=== PATIENT | male | born 1975 | race Caucasian/White ===

== ENCOUNTER 2019-08-30 20:11 | Emergency (ER) | payer OTHER ==
[~2019-08-30] VITALS: Ht 182.9 cm; Wt 113.4 kg
[2019-08-30] MEDS ORDERED: PERCOCET 5-3251 EACH PO (22:31)
== END 2019-08-30 22:15 | disposition home or self-care (01) ==
LOC: ED 20:11
DX: S32.2XXA Fracture of coccyx, initial encounter for closed fracture (principal); S39.012A Strain of muscle, fascia and tendon of lower back, initial encounter; S20.212A Contusion of left front wall of thorax, initial encounter; Z88.0 Allergy status to penicillin; Z88.2 Allergy status to sulfonamides; Z88.5 Allergy status to narcotic agent; V80.010A Animal-rider injured by fall from or being thrown from horse in noncollision accident, initial encounter
CPT/HCPCS: 71046; 71101; 71260; 72125; 74177; 80053; 81001; 82150; 82550; 83690; 85025; 86850; 86900; 86901; 99284-25; G0480; J1170; J2405

== ENCOUNTER 2020-09-16 19:16 | Emergency (ER) | payer OTHER ==
[~2020-09-16] VITALS: Ht 182.9 cm; Wt 117.9 kg
[~2020-09-16 19:16] MED LIST: PERCOCET 5-3251 EACH PO
[2020-09-16] MEDS ORDERED: LIPITOR80 MG PO (19:33)
[2020-09-16] MEDS ORDERED: KEFLEX500 MG PO (21:07)
== END 2020-09-16 21:20 | disposition home or self-care (01) ==
LOC: ED 19:16
DX: S81.012A Laceration without foreign body, left knee, initial encounter (principal); S30.1XXA Contusion of abdominal wall, initial encounter; W55.22XA Struck by cow, initial encounter; E78.00 Pure hypercholesterolemia, unspecified; Z88.0 Allergy status to penicillin; Z88.2 Allergy status to sulfonamides; Z88.5 Allergy status to narcotic agent; Z79.899 Other long term (current) drug therapy
CPT/HCPCS: 12002; 73502; 90471; 90715; 99283-25

== ENCOUNTER 2021-08-04 09:41 | Emergency (ER) | payer OTHER ==
[~2021-08-04] VITALS: Ht 182.9 cm; Wt 117.9 kg
[~2021-08-04 09:41] MED LIST changes: +KEFLEX500 MG PO; +LIPITOR80 MG PO
== END 2021-08-04 11:37 | disposition short-term general hospital (02) ==
LOC: ED 09:41
DX: S32.810A Multiple fractures of pelvis with stable disruption of pelvic ring, initial encounter for closed fracture (principal); Z88.0 Allergy status to penicillin; Z88.5 Allergy status to narcotic agent; Z88.2 Allergy status to sulfonamides; Z79.899 Other long term (current) drug therapy; Z20.822 Contact with and (suspected) exposure to COVID-19; W55.12XA Struck by horse, initial encounter
CPT/HCPCS: 71045; 74177; 80053; 83690; 85025; 86850; 86900; 86901; 96375; 96376; 99285-25; C9803; J1170; J3010; J7030; Q9967; U0003

== ENCOUNTER 2022-01-06 12:05 | Emergency (ER) | payer OTHER ==
[~2022-01-06] VITALS: Ht 182.9 cm; Wt 117.9 kg
--- OUTSIDE RECORDS SUMMARY | 2022-01-06 12:14 | XMS ---
PreManage Notification: TWYLA SINGH [employer] Events No recent Security Events currently on file CRITERIA MET - [facility] - 2 Visits in 30 Days CARE PROVIDERS WALTER CARDOSO Physician Current PHONE: Unknown Eric has no Care Guidelines for this patient. E.Venkatesh VISIT COUNT (12 MO.) [address] TOTAL 3 NOTE: Visits indicate total known visits. ED/C VISIT TRACKING (12 MO.) 01/06/2022 12:07 [facility] [place] TYPE: Emergency COMPLAINT: - CATHETER CHANGE 12/30/2021 12:48 [facility] TYPE: Emergency DIAGNOSES: - Personal history of (healed) traumatic fracture - Other specified disorders of bladder - Post-op Problem - Infection following a procedure, other surgical site, initial encounter 08/04/2021 09:41 [facility] [place] TYPE: Emergency COMPLAINT: - LOWER BACK PAIN, POSS LOC DIAGNOSES: - Allergy status to narcotic agent - Other senior living (current) drug therapy - Allergy status to penicillin - Struck by horse, initial encounter - Low back pain - Allergy status to sulfonamides - Multiple fractures of pelvis with stable disruption of pelvic ring, initial encounter for closed fracture INPATIENT VISIT TRACKING (12 MO.) 11/28/2021 06:06 [facility] Barbara [facility]VAREN[place] TYPE: Surgery DIAGNOSES: - Multiple fractures of pelvis with stable disruption of pelvic ring, subsequent encounter for fracture with nonunion [email or web address]
[2022-01-06] MEDS ORDERED: CEFDINIR300 MG PO (12:29)
[2022-01-06] MEDS ORDERED: DOXYCYCLINE HY100 MG PO (12:29)
[2022-01-06] MEDS ORDERED: AMLODIPINE BESYL5 MG PO (12:30)
[2022-01-06] MEDS ORDERED: ACID CONTROLLER20 MG PO (12:30)
[2022-01-06] MEDS ORDERED: LEVOFLOXACIN500 MG PO (12:30)
[2022-01-06] MEDS ORDERED: TYLENOL325 MG PO (12:31)
== END 2022-01-06 14:15 | disposition home or self-care (01) ==
LOC: ED 12:05
DX: T83.031A Leakage of indwelling urethral catheter, initial encounter (principal); E78.00 Pure hypercholesterolemia, unspecified; Z88.0 Allergy status to penicillin; Z88.2 Allergy status to sulfonamides; Z88.8 Allergy status to other drugs, medicaments and biological substances; Z88.5 Allergy status to narcotic agent; Z79.899 Other long term (current) drug therapy
CPT/HCPCS: 51702; 99283-25

== ENCOUNTER 2023-07-16 15:13 | Emergency (ER) | payer OTHER ==
[~2023-07-16] VITALS: Ht 182.9 cm; Wt 123.0 kg
[~2023-07-16 15:13] MED LIST changes: +ACID CONTROLLER20 MG PO; +AMLODIPINE BESYL5 MG PO; +CEFDINIR300 MG PO; +DOXYCYCLINE HY100 MG PO; +LEVOFLOXACIN500 MG PO; +TYLENOL325 MG PO
[2023-07-16] MEDS ORDERED: LISINOPRIL20 MG PO (15:21)
[2023-07-16] MEDS ORDERED: CEPHALEXIN500 M1 PO (16:15)
[2023-07-16 16:30] VITALS: BP 134/84
== END 2023-07-16 16:32 | disposition home or self-care (01) ==
LOC: ED 15:13
DX: S61.511A Laceration without foreign body of right wrist, initial encounter (principal); X58.XXXA Exposure to other specified factors, initial encounter; Z23 Encounter for immunization; Z88.0 Allergy status to penicillin; Z88.2 Allergy status to sulfonamides; Z88.5 Allergy status to narcotic agent; Z88.8 Allergy status to other drugs, medicaments and biological substances; Z79.899 Other long term (current) drug therapy
CPT/HCPCS: 12002; 90471; 90715; 99282-25

== ENCOUNTER 2023-09-22 00:32 | Emergency (ER) | payer OTHER ==
[~2023-09-22] VITALS: Ht 182.9 cm; Wt 123.0 kg
[~2023-09-22 00:32] MED LIST changes: +CEPHALEXIN500 M1 PO; +LISINOPRIL20 MG PO
[2023-09-22] MEDS ORDERED: ASPIRIN81 MG PO (00:42)
[2023-09-22 00:46] LABS: BASOPHILS 0.6 % (0-2); HEMATOCRIT 41.9 % (35.0-50.0); HEMOGLOBIN 14.3 g/dL (12.0-18.0); LYMPHOCYTES 30.6 % (24-44); MCH 29.6 (27-36); MCHC 34.1 g/dl (30-36); MCV 86.8 fl (81-99); MONOCYTES 7.6 % (0-12); NEUTROPHILS 59.2 % (39-80); PLATELET COUNT 273 K/uL (140-440); RBC 4.83 M/ul (4.3-5.7); RDW 13.2 (10.5-15.0)
[2023-09-22 00:56] LABS: INR 0.97 (0.80-1.30); PROTIME 12.4 Sec (11.2-14.2)
[2023-09-22 01:12] LABS: ALBUMIN 3.7 g/dL (3.4-5.0); ALBUMIN/GLOBULIN RATIO 1.23 (1.1-2.4); ANION GAP 11.6 (7-21); BILIRUBIN, TOTAL 0.6 ng/dL (0.2-1.0); BUN/CREATININE RATIO 16.66 (6.0-28.6); CALCIUM 8.2 mg/dL (8.5-10.1); CREATININE, SERUM 1.14 mg/dL (0.70-1.30); MAGNESIUM 1.7 mg/dL (1.8-2.4); POTASSIUM 3.6 mmol/L (3.5-5.1); PROTEIN, TOTAL 6.7 g/dL (6.4-8.2)
[2023-09-22] MEDS ORDERED: CYCLOBENZAPRINE10 MG PO (02:01)
[2023-09-22 02:30] VITALS: BP 136/85
--- NOTE | 2023-09-23 15:19 | EKG ---
[facility] [address] [facility] [place] [address] Signed Normal sinus rhythm Inferior infarct , age undetermined Abnormal ECG No previous ECGs available Confirmed by IVETTE GUERRERO MD ([id number]) on 09/23/2023 3:19:02 PM Electronically Signed By: IVETTE GUERRERO 09/23/23 1519 PATIENT NAME: TWYLA SINGH Electrocardiogram DATE OF : 75 PHYSICIAN: IVETTE GUERRERO REPORT #: [id number] REPORT IS CONFIDENTIAL AND NOT TO BE RELEASED WITHOUT AUTHORIZATION
== END 2023-09-22 02:33 | disposition home or self-care (01) ==
LOC: ED 00:32
PROVIDERS: Family Medicine
DX: R07.89 Other chest pain (principal); I10 Essential (primary) hypertension; E78.00 Pure hypercholesterolemia, unspecified; Z88.0 Allergy status to penicillin; Z88.2 Allergy status to sulfonamides; Z88.8 Allergy status to other drugs, medicaments and biological substances; Z88.5 Allergy status to narcotic agent; Z79.82 Long term (current) use of aspirin; Z79.899 Other long term (current) drug therapy
CPT/HCPCS: 36415; 71045; 80053; 83735; 83880; 84484; 85025; 85379; 85610; 93005; 93010; 99285-25

== ENCOUNTER 2025-02-09 05:38 | Day surgery (SDC) | payer BC ==
[2024-12-23 15:24] VITALS: BP 122/81
[2025-02-05 10:10] VITALS: BP 122/81
[2025-02-09] VITALS (14 sets, daily range): BP systolic 128–173; BP diastolic 61–94
[~2025-02-09] VITALS: Ht 182.9 cm; Wt 118.2 kg
[~2025-02-09 05:38] MED LIST changes: +ASPIRIN81 MG PO; +CYCLOBENZAPRINE10 MG PO; +LACTATED RINGER'S 1,000 ML IV SCH
[2025-02-09] MEDS ORDERED: Ropivacaine HCl 0.5% 30 ML VIAL ONE (06:21)
[2025-02-09] MEDS ORDERED: SODIUM CHLORIDE 0.9% 40 ML IV ONE (06:21)
[2025-02-09] MEDS ORDERED: LIDOCAINE HCL 2% 5 ML SDV ONE ×3 (06:21→07:18)
[2025-02-09] MEDS ORDERED: propofoL 200 MG/20 ML VIAL ONE ×2 (06:21→07:16)
[2025-02-09] MEDS ORDERED: fentaNYL citrate 100 MCG/2 ML VIAL ONE (06:21)
[2025-02-09] MEDS ORDERED: dexmedeTOMIDine HCl 200 MCG/2 ML VIAL ONE (06:21)
[2025-02-09] MEDS ORDERED: MIDAZOLAM HCL 2 MG/2 ML VIAL ONE (06:21)
[2025-02-09] MEDS ORDERED: DEXAMETHASONE SOD PHOS 4 MG/ML VIAL ONE (06:21)
[2025-02-09] MEDS ORDERED: Ropivacaine HCl 20 MG/10 ML AMP ONE (06:21)
--- NOTE | 2025-02-09 06:55 | NUR ---
PT WITH LISTED ALLERGY TO GABAPENTIN. ALLERGY TO MEDICATION CONFIRMED WITH PT. ORDERED PRE-OP DOSE OF GABAPENTIN WAS NOT GIVEN.
[2025-02-09] MEDS ORDERED: OXYCODONE HCL 5 MG TAB PO PRN (07:00)
[2025-02-09] MEDS ORDERED: TRANEXAMIC ACID IN NACL,ISO-OS 1,000 MG/100 ML PIGGYBACK IV SCH ×2 (07:00→09:53)
[2025-02-09] MEDS ORDERED: ondansetron HCL 4 MG TAB PO SCH (07:00)
[2025-02-09] MEDS ORDERED: CEFAZOLIN SODIUM 3 GM/30 ML SYR IV SCH ×2 (07:00→15:00)
[2025-02-09] MEDS ORDERED: PANTOPRAZOLE SODIUM 40 MG TABEC PO SCH (07:00)
[2025-02-09] MEDS ORDERED: LIDOCAINE HCL 1% 5 ML SDV INJ ONE (07:00)
[2025-02-09] MEDS ORDERED: INTRA-ARTICULAR ANALGESIC INJECTION XX SCH (07:00)
[2025-02-09] MEDS ORDERED: IBLOOD GLUCOSE TEST STRIP 1 EA TEST VI PRN ×2 (07:00→09:30)
[2025-02-09] MEDS ORDERED: OXYCODONE HCL 5 MG TAB PO SCH (07:00)
[2025-02-09] MEDS ORDERED: KETOROLAC TROMETHAMINE 30 MG/ML VIAL IV PRN (07:00)
[2025-02-09] MEDS ORDERED: ROPIVACAINE IN 0.9% SOD CHL/PF 545 ML ELS.PMP.HR IRRIGATION SCH (07:00)
[2025-02-09] MEDS ORDERED: GABAPENTIN 600 MG TAB PO SCH (07:00)
[2025-02-09] MEDS ORDERED: LACTATED RINGER'S 1,000 ML IV ONE (07:54)
[2025-02-09] MEDS ORDERED: SEVOFLURANE 250 ML BTL INH ONE (08:44)
[2025-02-09] MEDS ORDERED: KETOROLAC TROMETHAMINE 30 MG/ML VIAL ONE (08:51)
[2025-02-09] MEDS ORDERED: ACETAMINOPHEN 1,000 MG/100 ML VIAL ONE (08:51)
[2025-02-09] MEDS ORDERED: ASPIRIN325 MG PO (08:53)
[2025-02-09] MEDS ORDERED: CEFUROXIME250 MG PO (08:53)
[2025-02-09] MEDS ORDERED: SENNA LAX8.6 MG PO (08:54)
[2025-02-09] MEDS ORDERED: OXYCODONE HCL5 MG PO (08:54)
[2025-02-09] MEDS ORDERED: GABAPENTIN300 MG PO (08:54)
[2025-02-09] MEDS ORDERED: fentaNYL citrate 50 MCG/ML SDV ONE (09:15)
--- NOTE | 2025-02-09 09:15 | NUR ---
02/09/25 0915 Kenya Newman PATIENT IS MOVING HIS LEGS, BILATERALLY. HE REPORTS "MY LEFT KNEE HURTS."
[2025-02-09] MEDS ORDERED: HYDROmorphone HCL 1 MG/ML SYR ONE (09:21)
[2025-02-09] MEDS ORDERED: fentaNYL citrate 50 MCG/ML SDV IV PRN (09:30)
[2025-02-09] MEDS ORDERED: HYDROmorphone HCL 1 MG/ML SYR IV PRN (09:30)
[2025-02-09] MEDS ORDERED: MIDAZOLAM HCL 2 MG/2 ML VIAL IV PRN (09:30)
[2025-02-09] MEDS ORDERED: NALOXONE HCL 0.4 MG SYR IV PRN (09:30)
[2025-02-09] MEDS ORDERED: ondansetron HCL 4 MG/2 ML VIAL IV PRN (09:30)
--- NOTE | 2025-02-09 09:41 | NUR ---
SPOKE WITH KAILYN OLIVER AND RECEIVED VERBAL ORDER TO DC POST-OP ORDER FOR GABAPENTIN D/T CONFIRMED, LISTED ALLERGY TO MEDICATION. ORDER DC'D IN EMAR.
--- NOTE | 2025-02-09 10:25 | NUR ---
0954-PT ARRIVED BACK TO DS ON RA, AAOX3, ANSWERING QUESTIONS APPROPRIATELY, AND ABLE TO MAKE HIS NEEDS KNOWN. VS TAKEN. IV SITE ASSESSED, PATENT, AND INFUSING LR PER ORDERS. REPORT RECEIVED FROM BONDACTOR MACHINE OPERATOR. SURGICAL SITE VISUALIZED. DRSG APPEARS CDI. NOTED ON-Q-PUMP IN PLACE AND SET AT 4. CRYO CUFF IN PLACE TO L KNEE. FOOT PUMPS AND HEEL PROTECTORS PRESENT TO BLE'S. KNEE HIGH LACEY HOSE ALSO IN PLACE TO BLE'S. PT WITH REPORTS OF PAIN 9/10 IN L KNEE AND MIDWAY DOWN LLE. PTS SPINAL ONLY AFFECTED HIM UNILATERALLY WITH RLE NUMBNESS. LLE UNAFFECTED BY SPINAL. SPINAL LEVEL AT L5. PT DENIES NAUSEA WHEN ASKED. AT BEDSIDE. ALL QUESTIONS ANSWERED. BED IN LOW POSITION, WHEELS LOCKED, BILAT RAILS IN PLACE, AND CALL LIGHT WITHIN PT REACH. PT PROVIDED WITH ICE WATER, YULIANA CRACKERS, AND JELLO. 1006-PT HAS EATEN JELLO, CRACKERS, AND IS SIPPING ON WATER. PT CONT TO DENY NAUSEA WHEN ASKED. PT GIVEN PO PAIN MEDS PER EMAR FOR CONT C/O PAIN 9/10 IN L KNEE AREA. 1019-TXA STARTED PER ORDERS. 1025-ICE WATER REFILLED AND CRANBERRY JUICE PROVIDED AT PTS REQUEST.
[2025-02-09 11:16] LABS: BASOPHILS 0.2 % (0-2); EOSINOPHILS 0.3 % (0-6); HEMATOCRIT 38.6 % (35.0-50.0); LYMPHOCYTES 10.8 % (24-44); MCH 29.8 (27-36); MCHC 33.7 g/dl (30-36); MCV 88.3 fl (81-99); MONOCYTES 2.3 % (0-12); NEUTROPHILS 86.4 % (39-80); PLATELET COUNT 253 K/uL (140-440); RBC 4.37 M/ul (4.3-5.7); RDW 12.7 (10.5-15.0)
[2025-02-09 11:39] LABS: ALBUMIN 3.3 g/dL (3.4-5.0); ALBUMIN/GLOBULIN RATIO 1.18 (1.1-2.4); ANION GAP 11.3 (7-21); BILIRUBIN, TOTAL 0.5 mg/dL (0.2-1.0); CALCIUM 8.3 mg/dL (8.5-10.1); CHOLESTEROL/HDL RATIO 3.6; MAGNESIUM 1.6 mg/dL (1.8-2.4); PHOSPHORUS, INORGANIC 2.4 mg/dL (2.5-4.9); POTASSIUM 4.3 mmol/L (3.5-5.1); PROTEIN, TOTAL 6.1 g/dL (6.4-8.2); TSH, 3RD GENERATION 0.691 uIU/mL (0.358-3.740)
[2025-02-09] MEDS ORDERED: lisinopriL 20 MG TAB PO ONE (12:30)
--- NOTE | 2025-02-09 12:30 | NUR ---
1027-INTO PTS ROOM WITH REQUESTED WARM BLANKET. NOTED PT WITH RAPID EYE MOVEMENTS SIDE TO SIDE. THIS RN STATED TO PT "TYGH, ARE YOU FEELING OKAY?". PT ATTEMPTING TO ANSWER, BUT APPEARED TO BE EXPERIENCING SOME APHASIA. THIS RN ASKED PT "DO YOU KNOW WHERE YOU ARE". PT ANSWERED [facility] WITH DELAY AND SLUR TO SPEECH NOTED. THIS RN CALLED FOR ADDITIONAL RN ASSISTANCE FROM DRIVER EDUCATION INSTRUCTOR. VS TAKEN. PT CONT TO ATTEMPT SPEECH WITH APHASIA NOTED. WHEN PT IS ABLE TO GET WORDS OUT, WORDS ARE SLURRED. SPOKE WITH DRIVER EDUCATION INSTRUCTOR REGARDING NEED TO CALL RAPID RESPONSE OR STROKE CODE. PTS REMAINS AT BEDSIDE. 1030-CHARGE LN WITH CALL TO DR. FAM. THIS RN REMAINED WITH PT. NOTED PERRLA. NO FACIAL DROOP/SMILE EQUAL. PT ABLE TO MOVE BOTH ARMS W/O ANY WEAKNESS OR DEFICITS NOTED. 1035-CHARGE LN CALLED STROKE CODE. PT BECOMING TEARFUL AND EMOTIONAL. REASSURANCE PROVIDED. PT COACHED THROUGH PURSED LIP BREATHING. THIS WAS EFFECTIVE IN CALMING PT DOWN SOME AND SLOWING PTS BREATHING. 1038-STAINED GLASS WINDOW DESIGNER INTO ROOM. DIAGNOSTIC TECHNICIAN EQUAL. PT IS ABLE TO FOLLOW COMMAND AND DEMONSTRATED ABILITY TO TOUCH NOSE AND THEN FINGER TIP OF STAINED GLASS WINDOW DESIGNER. PT STILL EXPERIENCING DIFFICULTY WITH APHASIA AND SLURRED SPEECH. PT ABLE TO LIFT BOTH RLE OFF BED INSTRUCTED AND NO DRIFT NOTED. PT ABLE TO LIFT LLE OFF BED AND NO DRIFT NOTED. 1040-HOSPITALIST INTO PTS ROOM FOR EVAL. LABS AND IMAGING ORDERED. RN EQUALIZER OPERATOR CLEM ENTERING ORDERS. 1045-KAILYN LYNCH INTO PTS ROOM AND SPEAKING WITH PT AND PTS . 1050-EKG COMPLETED. 1053-LAB ARRIVED FOR BLOOD DRAW, HOWEVER PT NEEDING TO GO TO CT FOR IMAGING. LAB FOLLOWING TO CT. PT TAKEN TO CT VIA STRETCHER. 1055-PT TRANSFERRED TO CT TABLE. 1105-CT COMPLETE. PT TRANSFERRED BACK TO STRETCHER. LAB DRAWING BLOOD. 1110-CXR COMPLETED. 1115-PT TRANSFERRED BACK TO DS ROOM 7 VIA STRETCHER. HOSPITALIST AT PTS BEDSIDE WELL PTS . 1120-VS TAKEN. CALL LIGHT WITHIN PT REACH. CRYO CUFF AND SCD'S TURNED ON. BED IN LOW POSITION, WHEELS LOCKED. 1130-DR. FAM AND KAILYN AT PTS BEDSIDE. ROUTINE REASSESSMENT COMPLETED. VS TAKEN AND FREQ INCREASED TO Q30 MIN CHECKS. BP INCREASED SOME, REST OF VITALS REMAIN WITHIN PT BASELINE. SPINAL AT S1. PT DENIES NAUSEA. PAIN RATED AT 5/10 IN L KNEE BY PT WHEN ASKED. PT REPORTS THIS TO BE TOLERABLE. LLE PEDAL PULSE REMAINS STRONG. PT STILL TEARFUL AND REASSURANCE PROVIDED. CONT TO REMAIN AT PTS BEDSIDE. PT ABLE TO SAY HIS NAME AND DATE OF BUT WITH DIFFICULTY GETTING WORDS OUT AND SLURRING OF SOME WORDS NOTED STILL. PT REPORTS FEELING COLD AND WARM BLANKETS PROVIDED. IV SITE ASSESSED. DRSG REMAINS CDI TO L KNEE. ON-Q PUMP REMAINS AT 4. 1135-VERBAL ORDER RECEIVED FROM KAILYN OLIVER TO CHANGE PT TO NPO AND SEE IF ST AVAILABLE FOR EVAL. ALL CUPS OF LIQUIDS EMPTIED IN PTS ROOM. 1200-ST CALLED AND THIS RN WAS INFORMED NO ST AVAILABLE ON MONDAYS. 1210-MELODY NOTIFIED OF THIS VIA PHONE AND RECEIVED INSTRUCTION TO COMPLETE SMALL SIP SWALLOW TEST/EVAL OF WATER FROM CUP WITH STRAW AT BEDSIDE WITH PT AWAKE AND SITTING ALL THE WAY UP. IF NO SIGNS OF CHOKING OR DIFFICULTY, MAY GIVE 20 MG LISINOPRIL FOR CONT ELEVATED BP'S. ROUTINE REASSESSMENT ALSO COMPLETED. PT REPORTS PAIN REMAINS TOLERABLE AT 5/10 IN L KNEE. DRSG REMAINS CDI. BP ELEVATED, REST OF VS WITHIN PTS BASELINE. PT DENIES NAUSEA WHEN ASKED. ON-Q-PUMP REMAINS AT 4. REMAINS AT PTS BEDSIDE. 1220-PT PROVIDED CUPS WITH STRAW AND APPROX 60ML OF WATER IN CUP. HOB ELEVATED TO 90 DEGREES APPROX. PT INSTRUCTED TO TAKE SMALL SIP OF WATER THROUGH STRAW AND WAS ABLE TO FOLLOW COMMAND. PT DEMONSTRATED THIS AND NO COUGHING OR DIFFICULTY WITH SWALLOW WAS NOTED. PT W/O WATER NOTED FROM CORNERS OF MOUTH AND NO EYE WATERING OBSERVED EITHER. 1230-ENTERED VERBAL ORDER FROM MELODY TO GIVE 20 MG OF LISINOPRIL ONCE FOR ELEVATED BP. 1105
--- NOTE | 2025-02-09 13:10 | NUR ---
1240-INTO PTS ROOM AND LISINOPRIL GIVEN WITH SMALL SIP OF WATER. PT SWALLOWED W/O EVIDENCE OF SWALLOWING DIFFICULTY OBSERVED. PER MELODY, PT TO REMAIN NPO AND MAY LATER BE CHANGED TO ADVANCE TOELRATED IF PTS CONDITION CONT TO IMPROVE. SPINAL NOTED TO BE WORN OFF NOW. PERRLA. ORTHOPEDICALLY IMPAIRED TEACHER REMAIN EQUAL. PT DEMONSTRATES ABILITY TO FOLLOW COMMAND AND ANSWERED QUESTIONS APPROPRAITELY. SLURRED SPEECH APPEARS TO BE RESOLVED. NO FACIAL DROOP OBSERVED. SMILE APPEARS SYMETRICAL. 1242-IMAGING INFORMED DS THAT ULTRASOUND UNAVAILABLE FOR ECHO UNTIL POSSIBLY SUNDAY. 1245-PT ASKED IF HE FEELS HE MAYBE ABLE TO VOID AND HE THINKS HE CAN. URINAL PROVIDED. CALL LIGHT WITHIN REACH. HOB ELEVATED AT APPROX 60 DEGREES. 1250-PT ABLE TO VOID APPROX 700 ML OF CLR, YELLOW URINE. 1251-DR. BLOOM NOTIFIED OF ULTRASOUND BEING UNAVAILABLE FOR ECHO UNTIL POSSIBLY SUNDAY VIA PHONE. 1255-PT REPORTS LLE UNCOMFORTABLE. REPOSITIONED LLE AND HEEL PROTECTOR. CRYO-CUFF REPOSITIONED TO BACK OF L KNEE. PT REPORTS THIS TO MAKE PAIN MUCH BETTER. 1300-IP COUNSEL AT BEDSIDE AND GIVING PAIN RELIEF THROUGH ON-Q-PUMP. ROUTINE REASSESSMENT COMPLETED. DRSG REMAINS CDI. VS TAKEN. BP IMPROVED. REST OF VS REMAIN WITHIN PTS BASELINE. PT CONT TO DENY NAUSEA WHEN ASKED. PT REPORTS PAIN IMPROVED TO 4/10. PT REPORTS THIS TO BE A TOLERABLE LEVEL OF PAIN FOR HIM. CMS REMAINS INTACT. AT BEDSIDE. CALL LIGHT WITHIN PT REACH. BED IN LOW POSITION. WHEELS LOCKED. BILAT RAILS IN PLACE. 1305-DR. FAM IN TO PTS ROOM AND SPEAKING WITH PT. 1310-PT WITH HOB DECREASED TO APPROX 10-15 DEGREES AT PT REQUEST. REMAINS AT PT BEDSIDE. CALL LIGHT WITHIN PT REACH. PT RESTING QUIETLY WITH EYES CLOSED. SATS REMAIN STABLE ON RA AT 93% OR GREATER. ALL QUESTIONS ANSWERED.
--- NOTE | 2025-02-09 13:45 | NUR ---
1345-PT TRANSFERRED TO MS ROOM 116 VIA STRETCHER. ACCOMPANIED THIS RN AND PT TO ROOM. ALL PERSONAL BELONGINGS TAKEN WITH PT TO ROOM 116. PT TRANSFERRED FROM STRETCHER TO BED WITH 2 RN ASSIST. CALL LIGHT PROVIDED TO PT. VS TAKEN. SCD'S HOOKED UP. HEEP PROTECTORS IN PLACE. BED INLOW POSITION. WHEELS LOCKED, BIALT RAILS IN PLACE. REPORT GIVEN TO GUADALUPE PULLIAM IN MS. SURGICAL SITE VISUALIZED AND REMAINS CDI. CRYO CUFF IN PLACE TO L KNEE. ALL QUESTIONS ANSWERED.
--- NOTE | 2025-02-09 14:36 | NUR ---
PATIENT ASSESSMENT IS COMPLETE. PATIENT RATES LEFT KNEE PAIN 3/10 AND PLAN TO GIVE SCHEDULED TYLENOL. LEFT KNEE DRESSING IS CDI, FOOT SCD'S ARE ON. PATIENT GIVEN ICE WATER AND CRANBERRY JUICE.
--- NOTE | 2025-02-09 14:59 | NUR ---
PT LAYING IN BED, PT HAS PAIN 4-10, PT CHECKED IN BY GUADALUPE NAYLOR. PT HAS NO CURRENT NEEDS AT THIS TIME. PT IS IN ROOM AT BEDSIDE, PT CALL LIGHT IN REACH.
[2025-02-09] MEDS ORDERED: ACETAMINOPHEN 500 MG TAB PO SCH (15:00)
[2025-02-09] MEDS ORDERED: GABAPENTIN 300 MG CAP PO SCH (15:00)
--- NOTE | 2025-02-09 15:17 | NUR ---
ALERT AND ORIENTED IN BED. IN ROOM, AT BEDSIDE. PATIENT LIVES WITH IN HOUSE. DRIVES AT BASELINE. USES A CPAP AT NIGHT. STATES HE HAS A WALKER WELL FOR SURGICAL RECOVERY. STATES HE PLANS TO DC TO HOME WITH WHEN MEDICALLY CLEARED. DENIES ANY FINANCIAL DIFFICULTIES. NO CM NEEDS AT THIS TIME.
--- NOTE | 2025-02-09 16:00 | NUR ---
PT WALKED WITH PT PT USED FWW WALKER AND WALKED MED/SURG HALLS. PT REPORTS HE FEELS GOOD AND HAS NO PAIN AT THIS TIME PT RETURNED TO BED. CALL LIGHT IN REACH.
--- NOTE | 2025-02-09 17:00 | NUR ---
PT REQUESTED WATER, PT CRYOCUFF REFILLED, PT HAS NO COCNERNS AT THIS TIME. CRYO CUFF IN PLACE WITH HEELS ELEVATED AND FOOT PUMPS IN PLACE. PT IS ALSO ON CPOX AT THIS TIME CALL LIGHT IN REACH.
--- NOTE | 2025-02-09 17:30 | NUR ---
MICHELLE GARRIDO CALLED FROM [facility] OFFICE TO CHECK OF PT. SHE WAS TOLD THAT THE PT SPEECH HAS RESOLVED TO NORMAL, AND THAT PT HAS NO DEFICITS AT THIS TIME. PT WALKED HALLWAYS WITH PT AND HAS HAD NO PAIN OR NAUSEA SINCE ADMIT. SHE HAD NO FURTHER QUESTIONS.
--- NOTE | 2025-02-09 18:15 | NUR ---
PT LAYING IN BED, PT ATE DINNER BROUGHT BY , PT TOLERATED WELL AND HAS NO CONCERNS AT THIS TIME.
--- NOTE | 2025-02-09 18:41 | NUR ---
PT SITTING IN BED WITH CRYO CUFF IN PLACE PT HAS NO PAIN AT THIS TIME CALL LIGHT IN REACH.
--- NOTE | 2025-02-09 18:54 | NUR ---
PT LAYING IN BED WITH NO PAIN AT THIS TIME, PT ALERT AND ORIENTED, PT HAS NO NEURO DEFICITS AT THIS TIME. PT FAMILY IN ROOM AND CALL LIGHT IN REACH.
--- NOTE | 2025-02-09 19:10 | NUR ---
REPORT RECEIVED FROM FRACISCO BUTCHER. pt RESTING IN THE BED WITH SCD'S ON. CRYO CUFF ON. CALL LIGHT WITHIN REACH. BOARD UPDATED. DRESSING CDI. pt DENIES ANY OTHER NEEDS AT THIS TIME. CALL LIGHT WITHIN REACH.
[2025-02-09] MEDS ORDERED: SENNOSIDES 1 TAB PO SCH (21:00)
[2025-02-09] MEDS ORDERED: cefuroxime axetiL 250 MG TAB PO SCH (21:00)
[2025-02-09] MEDS ORDERED: ASPIRIN 325 MG TAB PO SCH (21:00)
--- NOTE | 2025-02-09 21:20 | NUR ---
ASSESSMENT AND VITAL SIGNS DONE. pt UP THE BR. SBA WITH FWW. pt BACK TO BED. pt SCD'S BACK ON FEET. CPOX ON. HOME CPAP SET UP. SCHEDULED MEDS ADMINISTERED. CRYO CUFF ON. pt DENIES ANY PAIN AT THIS TIME. pt DENIES ANY NEEDS AT THIS TIME. CALL LIGHT WITHIN REACH.
--- NOTE | 2025-02-09 22:31 | NUR ---
pt CALLED TO REQUEST HIS SLEEPING MEDS. PRN MEDS ADMINISTERED. WATER REFRESHED. pt DENIES ANY OTHER NEEDS AT THIS TIME. CALL LIGHT WITHIN REACH.
--- NOTE | 2025-02-09 22:48 | EKG ---
[facility] [address] [facility] [place] [address] Signed Normal sinus rhythm Normal ECG When compared with ECG of 22-SEP-2023 00:39, Criteria for Inferior infarct are no longer present Confirmed by Jeremy Bloom MD () on 02/09/2025 10:48:50 PM Electronically Signed By: JEREMY BLOOM MD 02/09/25 2248 PATIENT NAME: TWYLA SINGH LOGAN Electrocardiogram DATE OF : 75 PHYSICIAN: JEREMY BLOOM MD REPORT #: [id number] REPORT IS CONFIDENTIAL AND NOT TO BE RELEASED WITHOUT AUTHORIZATION
[2025-02-09] MEDS ORDERED: MAGNESIUM SULFATE 2 GM/50 ML BAG IV ONE (23:15)
[2025-02-10] VITALS (8 sets, daily range): BP systolic 115–1425; BP diastolic 59–78
--- NOTE | 2025-02-10 00:37 | NUR ---
pt RESTING IN THE BED WITH EYES CLOSED. RR EVEN AND UNLABORED. CPAP ON. CALL LIGHT WITHIN REACH.
--- NOTE | 2025-02-10 02:05 | NUR ---
ASSESSMENT AND VITAL SIGNS DONE. pt RESTING IN THE BED. WATER REFRESHED. pt DENIES ANY OTHER NEEDS AT THIS TIME. CALL LIGHT WITHIN REACH.
--- NOTE | 2025-02-10 04:30 | NUR ---
pt RESTING IN THE BED WITH EYES CLOSED. RR EVEN AND UNLABORED. CALL LIGHT WITHIN REACH.
[2025-02-10 05:52] LABS: BASOPHILS 0.3 % (0-2); EOSINOPHILS 0.3 % (0-6); HEMATOCRIT 36.5 % (35.0-50.0); HEMOGLOBIN 12.4 g/dL (12.0-18.0); LYMPHOCYTES 6.2 % (24-44); MCH 29.8 (27-36); MCHC 34.1 g/dl (30-36); MCV 87.4 fl (81-99); MONOCYTES 7.1 % (0-12); NEUTROPHILS 86.1 % (39-80); PLATELET COUNT 298 K/uL (140-440); RBC 4.18 M/ul (4.3-5.7); RDW 12.9 (10.5-15.0)
[2025-02-10 06:05] LABS: ALBUMIN 3.1 g/dL (3.4-5.0); ALBUMIN/GLOBULIN RATIO 1.11 (1.1-2.4); ANION GAP 12.1 (7-21); BILIRUBIN, TOTAL 0.6 mg/dL (0.2-1.0); BUN/CREATININE RATIO 17.5 (6.0-28.6); CALCIUM 8.3 mg/dL (8.5-10.1); CREATININE, SERUM 0.8 mg/dL (0.70-1.30); POTASSIUM 4.1 mmol/L (3.5-5.1); PROTEIN, TOTAL 5.9 g/dL (6.4-8.2)
[2025-02-10 06:11] LABS: MAGNESIUM 1.9 mg/dL (1.8-2.4)
--- NOTE | 2025-02-10 06:45 | NUR ---
VITAL SIGNS DONE. MRI ASSESSMENT SHEET DONE. ICE IN CRYO CUFF REPLACED. SCD FOOT PUMPS ON. pt DENIES ANY OTHER NEEDS AT THIS TIME. ON Q PUMP ON. CALL LIGHT WITHIN REACH.
[2025-02-10] MEDS ORDERED: cefuroxime axetiL 250 MG TAB PO SCH (09:00)
--- NOTE | 2025-02-10 09:00 | NUR ---
PT SITTING UP IN CHAIR, PT HAS NO CURRENT CONCERNS AT THIS TIME, PT DID WANT TO HAVE OXYCODONE ONCE HE RETURNS FROM MRI. PT AGREEABLE TO WAIT UNTIL AFTER MRI TO TRY OXY DUE TO EPISODE IN PACU AFTER OCY ADMIN. PT WILL BE MONITORED CLOSELY POST MRI.
--- NOTE | 2025-02-10 10:00 | NUR ---
IMAGING CAME TO GET PT FOR MRI, CRISTEL OFFICE WAS CALLED TO MAKE SURE THERE WERE NO METAL COMPONENTS IN THE ONQ PUMP. FAM OFFICE CONFIRMED. PT LEFT VIA WHEEL CHAIR FOR MRI.
--- NOTE | 2025-02-10 11:12 | NUR ---
UR CLINICAL REVIEW: [facility] REVIEW MEETS EXTENDED STAY RECOVERY FOR TKA WITH NEED FOR OBS TO R/O TIA VS CVA KHRIS LOPEZ PPO EXTENDED STAY 02/11/24 @ 1105 ORDER MATCHES REG NO AUTH REQUIRED PER GUIDELINES DISCHARGE TO HOME PENDING MRI TODAY
--- NOTE | 2025-02-10 11:28 | NUR ---
PT RETURNED FROM MRI, PT RETURNED TO BED, TELE IN PLACE, VFP IN PLACE, HEELS ELEVATED, CRYO CUFF IN PLACE. OXY 5MG GIVEN FOR PAIN (SEE EMAR). CALL LIGHT IN REACH.
--- NOTE | 2025-02-10 11:48 | NUR ---
PT RECIEVED PRN OXY 5MG (SEE EMAR). PT TOLERATED OXY WELL WITH NO SIDE EFFECTS. PT HAS NO CURRENT CONCERNS AT THIS TIME CALL LIGHT IN REACH.
--- NOTE | 2025-02-10 13:27 | NUR ---
SPOKE WITH RENATE MENDEZ REGARDING PT MRI AND DISCHARGE. RENATE GAVE VERBAL TO DC HOME WITH .
--- NOTE | 2025-02-10 13:36 | NUR ---
PT LAYING IN BED, CRYO CUFF IN PLACE, PT GIVEN DISCHARGE INSTRUCTIONS, AND HAS NO FURTHER QUESTIONS AT THIS TIME. PT HAS CALL LIGHT IN REACH.
--- NOTE | 2025-02-10 13:50 | NUR ---
Spoke with pts as pt is in the bathroom. She denies any needs. Pt plans on dc shortly. They will go home, pt has a walker and his Breg cooler.
--- NOTE | 2025-02-11 10:05 | OR ---
[facility] [address] [place], [place] [address] Signed DATE OF OPERATION: 02/09/2025 SURGEON: Lucy Brady MD PREOPERATIVE DIAGNOSIS: Severe degenerative joint disease, left knee. POSTOPERATIVE DIAGNOSIS: Severe degenerative joint disease, left knee. PROCEDURE PERFORMED: Left total knee arthroplasty with Bhupendra. APPLIANCE TECHNICIAN: Shantell Royal PA-C. Shantell was present and critical for all portions of procedure. ANESTHESIA: Spinal. BLOOD LOSS: 175 mL. IMPLANTS: Karlos Triathlon size 6, 10 mm polyethylene and 38 mm patella. 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 He has had multiple injuries to his knee over the years and wished to proceed with knee replacement after failure of nonoperative treatment. Risks, benefits, and alternatives were discussed and he understood and wished to proceed. DESCRIPTION OF PROCEDURE: Once consent was obtained, he was taken to the operating room. After adequate anesthesia, he was placed on the operating room table with the left hip bump. The leg was prepped and draped in a standard sterile fashion. The knee was approached through standard anterior midline incision, carried through the skin and subcutaneous tissue. Skin flaps were developed medially and laterally. A midvastus arthrotomy was performed and the infrapatellar fat pad was excised. The MCL was elevated as a sleeve around the posteromedial corner. The anterior horns of the menisci were transected. The ACL was Electronically Signed By: LUCY BRADY MD 02/11/25 1003 PATIENT NAME: TWYLA SINGH OPERATIVE REPORT DATE OF : 75 REPORT #: [id number] PHYSICIAN: LUCY BRADY MD PCP: WALTER CARDOSO PAC REPORT IS CONFIDENTIAL AND NOT TO BE RELEASED WITHOUT AUTHORIZATION [facility] [address] [place], [place] [address] Signed absent. The PCL was found to be intact. The computer arrays for the Bhupendra system was placed in the distal femur and proximal tibia. Leg was registered with the computer followed by the fine anatomic points of the knee. The varus and valgus testing was undertaken and slight adjustments were made to the position of the prosthesis. The robot was then brought in. Four straight cuts and two ankle cuts were made with care taken to protect the patellar tendon and MCL. All bony pieces were removed along with any remaining osteophytes. The posterior osteophytes were removed off the femur. No release was performed. The trials were positioned and the knee was taken from 0 to 130 degrees with good stability and good patellar tracking. The patella was cut sized and drilled for a 38 mm patella. The distal femoral drill holes were completed. The proximal tibia was finished using the keel punch followed by the drill holes. The prosthesis was obtained. The tibia was impacted into position until it was seated flush. The polyethylene was snapped into position and the femur was impacted. Once the femur was fully impacted, the knee was extended and loaded. The patella was then clamped. Patella was fully seated. The patellar tracking was again checked and found to be good. The knee was irrigated using one bottle of Surgiphor followed by normal saline. Periarticular soft tissues were injected with 100 mL of ropivacaine and Toradol mixture. The On-Q pain pump was percutaneously placed into the adductor canal from the suprapatellar pouch. The arthrotomy was then closed using a combination of #2 FiberWire and #2 Stratafix. The subcutaneous tissue was closed with 0 Stratafix and the skin with 3-0. The was sealed with LiquiBand and Steri-Strips and dressed with Acticoat-7 dressing, ABD, and Jorge wrap. He tolerated the procedure well. All sponge, needle, and instrument counts were correct. Lucy Brady MD BA/MODL /[id number] Copies: ~ Electronically Signed By: LUCY BRADY MD 02/11/25 1005 PATIENT NAME: TWYLA SINGH OPERATIVE REPORT DATE OF : 75 REPORT #: [id number] PHYSICIAN: LUCY BRADY MD PCP: WALTER CARDOSO PAC REPORT IS CONFIDENTIAL AND NOT TO BE RELEASED WITHOUT AUTHORIZATION
== END 2025-02-10 13:45 | disposition home or self-care (01) ==
LOC: DS 05:38 → MS 13:45 → DS 02-10 13:45
PROVIDERS: Family Medicine; ATTEND Specialist
PROC: 0SRD0JA Replacement of Left Knee Joint with Synthetic Substitute, Uncemented, Open Approach (ICD-10-PCS; principal; 2025-02-09 07:00)
DX: M17.12 Unilateral primary osteoarthritis, left knee (principal); R47.01 Aphasia; I10 Essential (primary) hypertension; G47.33 Obstructive sleep apnea (adult) (pediatric); Z88.0 Allergy status to penicillin; Z88.2 Allergy status to sulfonamides; Z88.5 Allergy status to narcotic agent; Z88.8 Allergy status to other drugs, medicaments and biological substances; Z79.82 Long term (current) use of aspirin; Z79.899 Other long term (current) drug therapy
CPT/HCPCS: 01400; 36415; 64447; 64450; 64454; 70450; 70496; 70498; 70551; 71045; 73560; 76942; 80053; 80061; 83036; 83735; 84100; 84443; 84484; 85025; 85060; 93005; 93010; 97110; 97161; 97165; 97530; A9270; C1713; C1776; J0131; J0690; J1100; J1171; J1885; J2003; J2250; J2704; J2795; J3010; J3475; J7121; J7999; Q9967

== ENCOUNTER 2025-11-02 05:44 | Day surgery (SDC) | payer BC ==
[~2025-11-02] VITALS: Ht 182.9 cm; Wt 118.0 kg
[~2025-11-02 05:44] MED LIST changes: +ASPIRIN325 MG PO; +CEFUROXIME250 MG PO; +GABAPENTIN300 MG PO; +OXYCODONE HCL5 MG PO; +SENNA LAX8.6 MG PO; +VAZALORE81 MG PO
[2025-11-02 06:05] VITALS: BP 138/80
[2025-11-02] MEDS ORDERED: LIDOCAINE HCL 2% 5 ML SDV ONE ×2 (06:08→06:19)
[2025-11-02] MEDS ORDERED: Ropivacaine HCl 0.5% 30 ML VIAL ONE ×2 (06:11→12:35)
[2025-11-02] MEDS ORDERED: MUPIROCIN22 GM TOP (06:39)
[2025-11-02] MEDS ORDERED: VANCOMYCIN HCL 1 GM in DEXTROSE 5% 250 ML IV SCH (07:00)
[2025-11-02] MEDS ORDERED: OXYCODONE HCL 5 MG TAB PO SCH (07:00)
[2025-11-02] MEDS ORDERED: LIDOCAINE HCL 1% 5 ML SDV INJ ONE (07:00)
[2025-11-02] MEDS ORDERED: TRANEXAMIC ACID IN NACL,ISO-OS 1,000 MG/100 ML PIGGYBACK IV SCH ×2 (07:00→09:30)
[2025-11-02] MEDS ORDERED: ROPIVACAINE IN 0.9% SOD CHL/PF 545 ML ELS.PMP.HR IRRIGATION SCH (07:00)
[2025-11-02] MEDS ORDERED: PANTOPRAZOLE SODIUM 40 MG TABEC PO SCH (07:00)
[2025-11-02] MEDS ORDERED: INTRA-ARTICULAR ANALGESIC INJECTION XX SCH (07:00)
[2025-11-02] MEDS ORDERED: IBLOOD GLUCOSE TEST STRIP 1 EA TEST VI PRN ×2 (07:00→08:15)
[2025-11-02] MEDS ORDERED: CEFAZOLIN SODIUM 2 GM VIAL ONE (07:08)
[2025-11-02] MEDS ORDERED: SODIUM CHLORIDE 0.9% 0 ML IV ONE (07:08)
[2025-11-02] MEDS ORDERED: KETOROLAC TROMETHAMINE 30 MG/ML VIAL IV PRN (07:30)
[2025-11-02] MEDS ORDERED: OXYCODONE HCL 5 MG TAB PO PRN (07:30)
[2025-11-02] MEDS ORDERED: DEXAMETHASONE SOD PHOS 4 MG/ML VIAL ONE (07:47)
[2025-11-02] MEDS ORDERED: ACETAMINOPHEN 1,000 MG/100 ML VIAL ONE (07:47)
[2025-11-02] MEDS ORDERED: fentaNYL citrate 100 MCG/2 ML VIAL ONE (07:47)
[2025-11-02] MEDS ORDERED: fentaNYL citrate 50 MCG/ML SDV IV PRN (08:15)
[2025-11-02] MEDS ORDERED: NALOXONE HCL 0.4 MG SYR IV PRN (08:15)
[2025-11-02] MEDS ORDERED: HYDROmorphone HCL 1 MG/ML SYR IV PRN (08:15)
[2025-11-02] MEDS ORDERED: SUGAMMADEX SODIUM 200 MG/2 ML ML ONE (08:48)
[2025-11-02] MEDS ORDERED: OXYCODONE HCL5 M1 PO (09:09)
[2025-11-02] MEDS ORDERED: ACETAMINOPHEN500 MG PO (09:09)
[2025-11-02] MEDS ORDERED: DICLOFENAC SODI75 MG PO (09:09)
[2025-11-02] MEDS ORDERED: ASPIRIN325 MG PO (09:09)
[2025-11-02] MEDS ORDERED: TRANEXAMIC ACI650 MG PO (09:14)
--- NOTE | 2025-11-02 09:24 | NUR ---
11/02/25 0924 Ginna Brady 0912 PT TO PACU ASLEEP ORAL AIRWAY IN PLACE O2 VIA MASK FOGGING NOTED IN MASK.
--- NOTE | 2025-11-02 10:15 | NUR ---
PT ARRIVES TO DS FROM PACU VIA STRETCHER. PT REPORTS NO PAIN OR NAUSEA AT THIS TIME. PT A&O AND ASKING APPROPRIATE QUESTIONS AT THIS TIME. REPORT RECEIVED FROM ALYSA BUTCHER, NOT PRESENT AT BEDSIDE AT THIS TIME. CALL LIGHT WITHIN REACH, PT STATES NO FURTHER NEEDS OR QUESTIONS AT THIS TIME. ICE WATER, CRACKERS, AND YULIANA CRACKERS PROVIDED AT THIS TIME. PT TOLERATING WITHOUT DIFFICULTY SWALLOWING OR ONSET OF NAUSEA.
[2025-11-02 10:18] VITALS: BP 132/70
[2025-11-02] MEDS ORDERED: SEVOFLURANE 250 ML BTL INH ONE (11:00)
[2025-11-02 11:20] VITALS: BP 141/73
--- NOTE | 2025-11-02 11:20 | NUR ---
PT REPORTS PAIN INCREASING IN RT KNEE. ANDRADE WELFARE DIRECTOR IN ROOM TO DISCUSS BLOCK AND PT REPORTS PAIN MUCH BETTER THAN LAST SURGERY, TOLERABLE, AND WOULD LIKE TO HOLD OFF ON ADDITIONAL PAIN BLOCK AT THIS TIME. PRN PAIN MED GIVEN (SEE EMAR). PT WOULD LIKE LIGHTS OFF SO HE CAN TAKE A NAP, CPOX IN PLACE D/T HEALTH HX. CALL LIGHT WITHIN REACH, NO CHANGES FROM PREVIOUS ASSESSMENT, PT REPORTS NO FURTHER NEEDS OR QUESTIONS AT THIS TIME. PT NOT PRESENT AT BEDSIDE.
--- NOTE | 2025-11-02 11:50 | NUR ---
PT ARRIVES BACK TO ROOM. PT REMAINS ON CPOX W/O2 >90%, EYES CLOSED, RESPIRATIONS EVEN AND UNLABORED, NO SIGNS OF DISTRESS. CALL LIGHT WITHIN REACH.
[2025-11-02 12:22] VITALS: BP 146/72
--- NOTE | 2025-11-02 12:40 | NUR ---
THIS RN WAKES PT UP FOR HOURLY ASSESSMENT. PT REPORTS PAIN HAS INCREASED TO 7 OR 8/10. THIS RN CALLED INTO OR FOR PAIN INTERVENTIONS D/T PT REACTION LAST SURGERY FROM 10 MG OF OXY. VERBAL ORDER FOR ONQ PUMP BOLUS, GIVEN. CALL LIGHT WITHIN REACH, PT AT BEDSIDE.
[2025-11-02] MEDS ORDERED: Ropivacaine HCl 0.5% 30 ML VIAL XX ONE (12:45)
--- NOTE | 2025-11-02 13:05 | NUR ---
IN PT ROOM FOR PAIN ASSESSMENT. PT STATES LITTLE TO NO CHANGE IN PAIN. JONAH ROSSI CONSULTED.
[2025-11-02] MEDS ORDERED: KETOROLAC TROMETHAMINE 30 MG/ML VIAL IV ONE (13:30)
[2025-11-02] MEDS ORDERED: ACETAMINOPHEN 500 MG TAB PO ONE (13:30)
--- NOTE | 2025-11-02 13:30 | NUR ---
VO RECIEVED FOR 1000 MG OF TYLENOL AND 30 MG OF TORADOL, GIVEN (SEE EMAR). LUNCH ORDER PLACED FOR PT. NO ACUTE CHANGES FROM PREVIOUS SURGICAL ASSESSMENT. PT CONTINUES TO TOLERATE ICE WATER AND CRANBERRY JUICE PROVIDED AT PT REQUEST. CALL LIGHT WITHIN REACH, PT AT PT BEDSIDE.
[2025-11-02 13:39] VITALS: BP 136/66
--- NOTE | 2025-11-02 14:20 | NUR ---
PT TOLERATES LUNCH W/NO REPORTED ONSET OF NAUSEA. PT STATES PAIN HAS LITTLE TO NO CHANGE, BUT WOULD LIKE TO WORK WITH PHYSICAL THERAPY. BRANDON W/PHYSICAL THERAPY IN PT ROOM AT THIS TIME. PT AT BEDSIDE.
--- NOTE | 2025-11-02 14:50 | NUR ---
PT BACK FROM PHYSICAL THERAPY. PER BRANDON, PT HAS PASSED. BRANDON ASSISTS PT WITH GETTING DRESSED. CRISTEL ROSSI UPDATED ON PT MEETING OF REQUIREMENTS AND VO RECEIVED FOR PT DC. PT AND PT REQUEST SENNA TO BE ORDERED D/T PT PROBLEMS WITH CONSTIPATION, CRISTEL ROSSI FAXES ORDER TO PHARMACY. CALL LIGHT WITHIN REACH.
[2025-11-02 14:57] VITALS: BP 143/68
[2025-11-02] MEDS ORDERED: ACETAMINOPHEN 500 MG TAB PO SCH ×2 (15:00)
[2025-11-02] MEDS ORDERED: SENNA LAX8.6 MG PO (15:13)
--- NOTE | 2025-11-02 15:15 | NUR ---
PT REQUESTS PRN PAIN MED FOR DRIVE HOME, GIVEN (SEE EMAR).
--- NOTE | 2025-11-02 15:35 | NUR ---
IN PT ROOM FOR DC EDUCATION AT THIS TIME. PT AND PT STATE VERBAL UNDERSTANDING AND NO FURTHER QUESTIONS OR NEEDS AT THIS TIME. PT OFF OF UNIT VIA WC TO PASSENGER SIDE OF VEHICLE. ALL BELONGINGS IN PT POSSESSION AT THIS TIME. URINAL, ICE WATER, AND ICE PACK PROVIDED. PT AND PT STATE NO FURTHER NEEDS UPON DC.
--- NOTE | 2025-11-02 16:03 | OR ---
[facility] [address], [place] [address] Signed DATE OF OPERATION: 11/02/2025 SURGEON: Lucy Brady MD PREOPERATIVE DIAGNOSIS: Severe degenerative joint disease, right knee. POSTOPERATIVE DIAGNOSIS: Severe degenerative joint disease, right knee. PROCEDURE PERFORMED: Right total knee arthroplasty with Bhupendra. BRICK TESTER: Shantell Royal PA-C. Shantell was present and critical for all portions of procedure. ANESTHESIA: Spinal. BLOOD LOSS: 200 mL. IMPLANTS: Karlos Triathlon size 6, 10 mm polyethylene and a 38 mm patella. BRIEF HISTORY: Twyla is a 50-year-old, who had a traumatic injury to his knee about 26 years ago. He had undergone ACL reconstruction, but developed progressive arthritis in that knee. He had prior total knee on the left with good results and wished to proceed with the right. Risks, benefits, and alternatives of surgery were discussed with him and he elected to proceed. DESCRIPTION OF PROCEDURE: Once consent was obtained, he was taken to the operating room. After adequate anesthesia, he was placed on the OR table. All downside pressure points were well padded. The right leg was prepped and draped in a standard sterile fashion. The knee was approached through a standard anterior midline incision, carried through the skin and subcutaneous tissue. Skin flaps were developed medially and laterally. The mid vastus arthrotomy was performed and the infrapatellar fat pad and scar tissue from prior Electronically Signed By: LUCY BRADY MD 11/02/25 1603 PATIENT NAME: TWYLA SINGH OPERATIVE REPORT DATE OF : 75 REPORT #: [id number] PHYSICIAN: LUCY BRADY MD PCP: WALTER CARDOSO PAC REPORT IS CONFIDENTIAL AND NOT TO BE RELEASED WITHOUT AUTHORIZATION [facility] [address], [place] [address] Signed surgery were removed. The ACL was noted to be balled up inside the notch anteriorly. There was no connectivity. The MCL was elevated as a sleeve around the posteromedial corner. The PCL was intact. The navigation computer arrays were placed in the distal femur and proximal tibia. The leg was then registered with the computer and this was followed by the fine anatomic points of the knee. Varus and valgus testing was undertaken and slight adjustments were made to the position of the components. Once this was completed, the four straight cuts and two angle cuts were made with care taken to protect the patellar tendon and MCL. The remaining osteophytes and bone pieces were all removed. Posterior osteophytes were removed off the femur. Small posterior osteophytes were removed off the tibia. The trials were then positioned. The knee was taken from 0 to 130 degrees with good range of motion and good stability. The patella tracked well. The patella was cut sized and drilled for a 38 mm patella. The distal femoral drill holes were completed. The proximal tibia was finished using the keel punch. Because of the prior ACL reconstruction and the bone defect related to the ACL graft, we elected to go ahead and cement the tibial side just to give it a bit extra strength. The cement was mixed, when it reached proper consistency, it was placed on the tibial component and on the bone and the tibia was impacted until it was fully seated. All excess cement was removed. The polyethylene was snapped into position and the femur was impacted. The knee was then extended and loaded. The patellar component was then clamped into position until it was seated fully. The knee was again taken through range of motion and found to be stable. The patella tracked well. The On-Q pain pump was percutaneously placed into the adductor canal from the suprapatellar pouch. The periarticular soft tissues were injected with 100 mL of ropivacaine and Toradol mixture. The knee was washed out with 1 bottle of Surgiphor followed by normal saline. The arthrotomy was then closed using #2 FiberWire and #2 Stratafix, subcutaneous tissue with 0 Stratafix and the skin with 3-0 Stratafix. The wound was sealed with LiquiBand and dressed with Acticoat-7 dressing, ABDs and Jorge wrap. He tolerated the procedure well. All sponge, needle, and instrument counts were correct. Lucy Brady MD BA/MODL /[id number] Electronically Signed By: LUCY BRADY MD 11/02/25 1603 PATIENT NAME: TWYLA SINGH OPERATIVE REPORT DATE OF : 75 REPORT #: [id number] PHYSICIAN: LUCY BRADY MD PCP: WALTER CARDOSO PAC REPORT IS CONFIDENTIAL AND NOT TO BE RELEASED WITHOUT AUTHORIZATION [address] [address] Signed Copies: ~ Electronically Signed By: LUCY BRADY MD 11/02/25 1603 PATIENT NAME: TWYLA SINGH LOGAN OPERATIVE REPORT DATE OF : 75 REPORT #: [id number] PHYSICIAN: LUCY BRADY MD PCP: WALTER CARDOSO PAC REPORT IS CONFIDENTIAL AND NOT TO BE RELEASED WITHOUT AUTHORIZATION
[2025-11-02] MEDS ORDERED: SENNOSIDES 1 TAB PO SCH (21:00)
[2025-11-03] MEDS ORDERED: DICLOFENAC SOD 75 MG TABEC PO SCH (08:00)
[2025-11-03] MEDS ORDERED: ASPIRIN 325 MG TAB PO SCH (08:00)
[2025-11-03] MEDS ORDERED: DULOXETINE HCL 30 MG CAP PO SCH (09:00)
== END 2025-11-02 15:45 | disposition home or self-care (01) ==
LOC: DS 05:44
PROVIDERS: ATTEND Specialist
PROC: 0SRC0JZ Replacement of Right Knee Joint with Synthetic Substitute, Open Approach (ICD-10-PCS; principal; 2025-11-02 07:00)
DX: M17.31 Unilateral post-traumatic osteoarthritis, right knee (principal); I10 Essential (primary) hypertension; E78.00 Pure hypercholesterolemia, unspecified; Z88.1 Allergy status to other antibiotic agents; Z88.8 Allergy status to other drugs, medicaments and biological substances
CPT/HCPCS: 0055T; 27447; 01402; 64445; 64447; 64454; 73560; 97116; 97161; 97530; A9270; C1713; C1776; J0131; J1100; J1885; J2003; J2405; J2704; J2795; J3010; J3373; J7060; J7121; J7999